=== PATIENT | female | born 1960 | race Caucasian/White ===

== ENCOUNTER 2024-04-15 18:24 | Inpatient (IN) | payer BC ==
[2024-04-15] MEDS ORDERED: Acetaminophen 325 MG TAB PO PRN (18:54)
[2024-04-15] MEDS ORDERED: traMADol HCl 50 MG TAB PO PRN (18:54)
[2024-04-15] MEDS ORDERED: Senokot S 8.6-50 MG TAB PO PRN (18:54)
[2024-04-15] MEDS ORDERED: Labetalol HCl 100 MG/20 ML VIAL SLOW IVP PRN (18:54)
[2024-04-15] MEDS ORDERED: Ondansetron PF 4 MG/2 ML Vial IVP PRN (18:54)
[2024-04-15] MEDS ORDERED: Calcium Carbonate 500 MG ChewTAB PO PRN (18:54)
[2024-04-15] MEDS ORDERED: Acetaminophen/Codeine 30-300mg Tablet PO PRN (20:58)
[2024-04-15 21:24] VITALS: BMI 23.3
[2024-04-15] MEDS ORDERED: hydrALAZINE 20 MG/ML VIAL SLOW IVP PRN (21:54)
[2024-04-15] MEDS: Dexamethasone 4 MG TAB PO SCH (21:58)
[2024-04-15] MEDS: levETIRAcetam 500 MG TAB PO SCH (21:58)
[2024-04-15] MEDS: Pantoprazole DR 40 MG TAB PO SCH (21:59)
[2024-04-16 04:09] LABS: #Basophils Less than 0.03 10x3/uL (0.0-0.2); #Eosinphils Less than 0.03 10x3/uL (0.0-0.7); %Basophils 0.1 % (0.0-1.0); %Lymphocytes 9.8 % (21.0-51.0); %Monocytes 1.6 % (0.0-10.0); %Neutrophils 88.1 % (42.0-75.0); Hematocrit 44.1 % (36.0-47.0); Hemoglobin 14.5 g/dL (12.0-16.0); Mean Corpuscular HGB CONC 32.9 g/dL (32.0-36.0); Mean Corpuscular Hemoglobin 33.1 pg (27.0-31.0); Mean Corpuscular Volume 100.7 fL (78.0-98.0); Mean Platelet Volume 8.9 fL (7.4-10.4); Platelet Count 377 10x3/uL (130-400); RBC Distribution Width 11.8 % (11.5-14.5); Red Blood Cell (RBC) Count 4.38 mill/uL (4.20-5.40)
[2024-04-16 04:26] LABS: ALT (SGPT) 15 U/L (8-55); AST (SGOT) 17 U/L (5-34); Alkaline Phosphatase 86 U/L (40-110); Anion Gap 14 mmol/L (10-20); BUN (Urea Nitrogen) 11 mg/dL (9.8-20.1); Bilirubin, Total 0.5 mg/dL (0.2-1.2); Calc. Creatinine Clearance 94 mL/min (70-130); Calcium 10.1 mg/dL (7.8-10.44); Carbon Dioxide 21 mmol/L (23-31); Chloride 106 mmol/L (98-107); Estimated GFR 98; Globulin 3.2 g/dL (2.4-3.5); Glucose 128 mg/dL (80-115); Magnesium 2.1 mg/dL (1.6-2.6); Protein, Total 7.2 g/dL (5.8-8.1); Sodium 137 mmol/L (136-145)
[2024-04-16] MEDS: Pantoprazole DR 40 MG TAB PO SCH (08:14)
[2024-04-16] MEDS: Acetaminophen/Codeine 30-300mg Tablet PO PRN (15:41)
[2024-04-16] MEDS: Lorazepam 2 MG/ML VIAL SLOW IVP PRN (17:30)
[2024-04-16] MEDS: Lorazepam 2 MG/ML VIAL ONE (17:35)
[2024-04-17 03:54] LABS: #Basophils Less than 0.03 10x3/uL (0.0-0.2); #Eosinphils Less than 0.03 10x3/uL (0.0-0.7); %Basophils 0.1 % (0.0-1.0); %Lymphocytes 6.1 % (21.0-51.0); %Neutrophils 91.4 % (42.0-75.0); Hematocrit 41.4 % (36.0-47.0); Hemoglobin 13.8 g/dL (12.0-16.0); Mean Corpuscular HGB CONC 33.3 g/dL (32.0-36.0); Mean Platelet Volume 9.3 fL (7.4-10.4); Platelet Count 404 10x3/uL (130-400); RBC Distribution Width 11.8 % (11.5-14.5); Red Blood Cell (RBC) Count 4.18 mill/uL (4.20-5.40)
[2024-04-17 04:11] LABS: Anion Gap 13 mmol/L (10-20); BUN (Urea Nitrogen) 18 mg/dL (9.8-20.1); Calc. Creatinine Clearance 94 mL/min (70-130); Calcium 9.7 mg/dL (7.8-10.44); Carbon Dioxide 20 mmol/L (23-31); Chloride 107 mmol/L (98-107); Estimated GFR 98; Glucose 148 mg/dL (80-115); Potassium 3.9 mmol/L (3.5-5.1); Sodium 136 mmol/L (136-145)
[2024-04-17] MEDS ORDERED: Vancomycin 1 GM VIAL ONE (06:24)
[2024-04-17] MEDS ORDERED: Bacitracin Zinc Ointment 30 gm TUBE ONE (06:24)
[2024-04-17] MEDS ORDERED: EPINEPHrine 1 MG/ML VIAL ONE (06:24)
[2024-04-17] MEDS ORDERED: Lidocaine 1% (PF) 30 ML VIAL ONE (06:25)
[2024-04-17] MEDS ORDERED: Thrombin 5000 UNITS/5 ML VIAL ONE ×2 (06:25)
[2024-04-17] MEDS ORDERED: fentaNYL PF 100 MCG/2 ML SYRINGE ONE (06:51)
[2024-04-17] MEDS ORDERED: PROPOFOL 20 ML ONE (06:51)
[2024-04-17] MEDS ORDERED: Lidocaine 1% PF 5 ML VIAL ONE (06:57)
[2024-04-17] MEDS ORDERED: Rocuronium Bromide 10 MG/ML (10ML VIAL) ONE (06:57)
[2024-04-17] MEDS ORDERED: Propofol 1,000 MG/100 ML VIAL IV ONE (07:06)
[2024-04-17] MEDS ORDERED: CEFAZOLIN 1 GM VIAL ONE (08:00)
[2024-04-17] MEDS ORDERED: levETIRAcetam 500 MG (5 mL) VIAL ONE (08:16)
[2024-04-17] MEDS ORDERED: Dexamethasone 20 MG/5 ML VIAL ONE (08:45)
[2024-04-17] MEDS ORDERED: PHENYLEPHRINE-NS 100 MCG/ML 10 ML SYRINGE ONE (09:09)
[2024-04-17] MEDS ORDERED: fentaNYL 50 mcg/mL 1 mL Vial ONE (09:38)
[2024-04-17] MEDS ORDERED: Ondansetron PF 4 MG/2 ML Vial ONE (09:38)
[2024-04-17] MEDS ORDERED: Mag-Al 1200 mg/1200 mg/30 ML UDCUP PO PRN (10:28)
[2024-04-17] MEDS ORDERED: hydrALAZINE 20 MG/ML VIAL SLOW IVP PRN (10:32)
[2024-04-17] MEDS ORDERED: Labetalol HCl 100 MG/20 ML VIAL SLOW IVP PRN (10:33)
[2024-04-17] MEDS ORDERED: Glycopyrrolate 0.2 MG/ML 5 ML SYRINGE ONE (10:50)
[2024-04-17] MEDS ORDERED: NEOSTIGMINE 3 MG/3 ML SYRINGE ONE (10:50)
[2024-04-17] MEDS: Sodium Chloride 0.9% 1,000 ML IV SCH (10:51)
[2024-04-17] MEDS: Morphine 2 MG/ML VIAL SLOW IVP PRN (10:56)
[2024-04-17] MEDS: Acetaminophen/Codeine 30-300mg Tablet PO PRN (13:29)
[2024-04-17] MEDS: CEFAZOLIN 2 GM in Sodium Chloride 0.9% 100 ML IVPB SCH (15:57)
[2024-04-18 05:00] LABS: #Basophils Less than 0.03 10x3/uL (0.0-0.2); #Eosinphils Less than 0.03 10x3/uL (0.0-0.7); %Basophils 0.1 % (0.0-1.0); %Lymphocytes 5.2 % (21.0-51.0); %Monocytes 5.2 % (0.0-10.0); %Neutrophils 88.7 % (42.0-75.0); Anion Gap 12 mmol/L (10-20); BUN (Urea Nitrogen) 17 mg/dL (9.8-20.1); Calc. Creatinine Clearance 95 mL/min (70-130); Calcium 9.2 mg/dL (7.8-10.44); Carbon Dioxide 22 mmol/L (23-31); Chloride 106 mmol/L (98-107); Estimated GFR 98; Glucose 144 mg/dL (80-115); Hematocrit 41.5 % (36.0-47.0); Hemoglobin 13.4 g/dL (12.0-16.0); Mean Corpuscular HGB CONC 32.3 g/dL (32.0-36.0); Mean Corpuscular Hemoglobin 33.3 pg (27.0-31.0); Mean Platelet Volume 9.3 fL (7.4-10.4); Platelet Count 376 10x3/uL (130-400); Potassium 3.9 mmol/L (3.5-5.1); RBC Distribution Width 11.9 % (11.5-14.5); Red Blood Cell (RBC) Count 4.03 mill/uL (4.20-5.40); Sodium 136 mmol/L (136-145)
[2024-04-18] MEDS: Polyethylene Glycol 3350 17 GM Packet PO SCH (09:25)
[2024-04-18] MEDS ORDERED: FLU (Fluad Triv) TS24-25 (65UP)/MF59C/PF 45 MCG/0.5 ML Syringe IM ONE (21:30)
[2024-04-19 03:56] LABS: #Basophils Less than 0.03 10x3/uL (0.0-0.2); #Eosinphils Less than 0.03 10x3/uL (0.0-0.7); %Basophils 0.1 % (0.0-1.0); %Lymphocytes 7.2 % (21.0-51.0); %Monocytes 5.3 % (0.0-10.0); %Neutrophils 86.5 % (42.0-75.0); Hematocrit 39.7 % (36.0-47.0); Hemoglobin 13.5 g/dL (12.0-16.0); Mean Corpuscular Hemoglobin 32.8 pg (27.0-31.0); Mean Corpuscular Volume 96.6 fL (78.0-98.0); Mean Platelet Volume 9.1 fL (7.4-10.4); Platelet Count 346 10x3/uL (130-400); RBC Distribution Width 11.7 % (11.5-14.5); Red Blood Cell (RBC) Count 4.11 mill/uL (4.20-5.40)
[2024-04-19 04:05] LABS: Anion Gap 12 mmol/L (10-20); BUN (Urea Nitrogen) 12 mg/dL (9.8-20.1); Calc. Creatinine Clearance 94 mL/min (70-130); Carbon Dioxide 22 mmol/L (23-31); Chloride 106 mmol/L (98-107); Estimated GFR 98; Glucose 134 mg/dL (80-115); Sodium 136 mmol/L (136-145)
[2024-04-19] MEDS: Acetaminophen 325 MG TAB PO PRN (08:15)
[2024-04-19] MEDS: Polyvinyl Alcohol 1.4%/Povidone 0.6% Opth Drops EA EYE SCH (14:15)
[2024-04-20 05:22] LABS: #Basophils Less than 0.03 10x3/uL (0.0-0.2); #Eosinphils Less than 0.03 10x3/uL (0.0-0.7); %Basophils 0.1 % (0.0-1.0); %Lymphocytes 6.6 % (21.0-51.0); %Neutrophils 87.5 % (42.0-75.0); Hematocrit 38.9 % (36.0-47.0); Hemoglobin 13.3 g/dL (12.0-16.0); Mean Corpuscular HGB CONC 34.2 g/dL (32.0-36.0); Mean Corpuscular Hemoglobin 32.5 pg (27.0-31.0); Mean Corpuscular Volume 95.1 fL (78.0-98.0); Mean Platelet Volume 9.6 fL (7.4-10.4); Platelet Count 371 10x3/uL (130-400); RBC Distribution Width 11.7 % (11.5-14.5); Red Blood Cell (RBC) Count 4.09 mill/uL (4.20-5.40)
[2024-04-20 05:40] LABS: Anion Gap 11 mmol/L (10-20); BUN (Urea Nitrogen) 16 mg/dL (9.8-20.1); Calc. Creatinine Clearance 102 mL/min (70-130); Calcium 9.1 mg/dL (7.8-10.44); Carbon Dioxide 22 mmol/L (23-31); Chloride 104 mmol/L (98-107); Estimated GFR 99; Glucose 145 mg/dL (80-115); Potassium 3.9 mmol/L (3.5-5.1); Sodium 133 mmol/L (136-145)
[2024-04-20] MEDS: FLU (Fluad Triv) TS24-25 (65UP)/MF59C/PF 45 MCG/0.5 ML Syringe IM ONE (10:41)
[2024-04-22 06:28] LABS: #Basophils 0.03 10x3/uL (0.0-0.2); #Eosinphils Less than 0.03 10x3/uL (0.0-0.7); %Basophils 0.2 % (0.0-1.0); %Lymphocytes 5.2 % (21.0-51.0); %Monocytes 5.7 % (0.0-10.0); %Neutrophils 86.8 % (42.0-75.0); Hematocrit 42.3 % (36.0-47.0); Hemoglobin 14.4 g/dL (12.0-16.0); Mean Corpuscular Hemoglobin 32.1 pg (27.0-31.0); Mean Corpuscular Volume 94.4 fL (78.0-98.0); Mean Platelet Volume 9.3 fL (7.4-10.4); Platelet Count 438 10x3/uL (130-400); RBC Distribution Width 11.7 % (11.5-14.5); Red Blood Cell (RBC) Count 4.48 mill/uL (4.20-5.40)
[2024-04-22 06:43] LABS: Anion Gap 11 mmol/L (10-20); BUN (Urea Nitrogen) 19 mg/dL (9.8-20.1); Calc. Creatinine Clearance 105 mL/min (70-130); Calcium 9.2 mg/dL (7.8-10.44); Carbon Dioxide 26 mmol/L (23-31); Chloride 99 mmol/L (98-107); Estimated GFR 100; Glucose 122 mg/dL (80-115); Potassium 4.1 mmol/L (3.5-5.1); Sodium 132 mmol/L (136-145)
[2024-04-22 13:29] VITALS: BMI 23.4
[2024-04-22] MEDS: Dexamethasone 1 MG TAB PO SCH (21:01)
[2024-04-23 12:29] VITALS: BP 119/75; TEMP 97.9
[2024-04-23] MEDS ORDERED: Dexamethasone 1 MG TAB PO SCH (20:00)
[2024-04-24] MEDS ORDERED: Dexamethasone 1 MG TAB PO SCH (20:00)
== END 2024-04-23 16:20 | DRG 25 ==
LOC: ERS 18:24 → SUATTDRO 18:24 → CCU 18:48 → SURG B 04-19 16:04
PROVIDERS: ADMIT Internal Medicine; ATTEND Internal Medicine
PROC: 00B70ZX Excision of Cerebral Hemisphere, Open Approach, Diagnostic (ICD-10-PCS; principal; 2024-04-17)
PROC: 8E0 Other Procedures, Physiological Systems and Anatomical Regions, Other Procedures (ICD-10-PCS; 2024-04-17)
DX: C71.1 Malignant neoplasm of frontal lobe (principal); G93.41 Metabolic encephalopathy; G93.6 Cerebral edema; I61.1 Nontraumatic intracerebral hemorrhage in hemisphere, cortical; C71.2 Malignant neoplasm of temporal lobe; G43.909 Migraine, unspecified, not intractable, without status migrainosus; D72.829 Elevated white blood cell count, unspecified; Z91.013 Allergy to seafood; Z91.048 Other nonmedicinal substance allergy status
CPT/HCPCS: 36415; 36416; 70450; 70553; 72125; 76376; 80048; 80053; 80306; 80307; 81001; 82140; 82550; 83735; 85025; 85610; 85730; 86850; 86900; 86901; 88307; 88331; 93005; 96365; 96375; 99285; A9579; C1713; C1889; J0171; J0690; J1100; J1953; J2001; J2060; J2272; J2405; J2704; J3010; J3370; J7030; J8540

== ENCOUNTER 2024-05-23 10:41 | Outpatient (CLI) | payer BC | END 2024-05-23 10:42 | disposition home or self-care (01) | LOC: SCSMRI 10:41 | PROVIDERS: ATTEND Radiology Radiation Oncology | DX: C71.9 Malignant neoplasm of brain, unspecified (principal); S06.2XAA Diffuse traumatic brain injury with loss of consciousness status unknown, initial encounter; Z98.890 Other specified postprocedural states | CPT/HCPCS: 70553; 76376 ==